=== PATIENT | male | born 1960 | race Caucasian/White ===

== ENCOUNTER → 2020-10-19 11:31 | Outpatient (REF) | payer OTHER, SELFPAY ==
--- NOTE | 2020-10-19 11:30 | CA_ITS ---
Transthoracic Echocardiogram Patient (Last, First, Middle): Tam Yeh, Gender: Male Date of : 1960 Age: 60 Procedure Date: 10/19/2020 Procedure Type: Transthoracic Echocardiogram Location: OP Height: 180.34 cm Weight: 88.45 kg BSA: 2.09 m2 Heart Rate: bpm BP: 112 / 62 mmHg Yard Cleaner: ADEN Referring MD: Mukesh Jane MD Symptoms: I77.810 AAA,Z86.711 HX PULMONARY EMBOLISM Study Quality: Fair Conclusions: - Normal left ventricular size, thickness, systolic function, and wall motion. The visually estimated ejection fraction is between 55-60%. - Normal right ventricular cavity size and systolic function. - There is mild dilatation of the sinuses of Valsalva and mild dilatation of the ascending aorta. Findings Left Ventricle Normal left ventricular size, thickness, systolic function, and wall motion. The visually estimated ejection fraction is between 55-60%. Diastolic function is normal for age. Right Ventricle Normal right ventricular cavity size and systolic function. Atria Both atria are normal in size. Aortic Valve There is a normal trileaflet aortic valve. There is no aortic valve stenosis. There is no aortic valve regurgitation. Mitral Valve Normal mitral valve structure and function. There is trace mitral valve regurgitation. There is no mitral valve stenosis. Pulmonic Valve The pulmonic valve is likely normal. Tricuspid Valve Normal tricuspid valve structure and function. There is trace tricuspid valve regurgitation. Normal right atrial pressure. There is no evidence of pulmonary hypertension. Great Vessels The pulmonary artery was not well visualized. There is mild dilatation of the sinuses of Valsalva and mild dilatation of the ascending aorta. Venous The inferior vena cava is normal in size and collapses greater than 50% with inspiration. Pericardium/Pleural There is no evidence of pericardial effusion. Prior Study Comparison No significant change compared to prior study dated: 11/04/2019. Measurements 2D Linear Measurements IVSd: 1.03 0.6-0.9/0.6-1.0 cm LVIDd: 5.23 3.9-5.3/4.2-5.9 cm LVIDd Index: 2.50 2.4-3.2/2.2-3.1 cm/m2 LVIDs: 3.73 2.0-3.6 cm LVPWd: 0.87 0.7-1.1 cm Ao Root: 4.30 2.1-3.5 cm LA Diam: 3.80 2.7-3.8/3.0-4.0 cm LAIDs Index: 1.82 1.5-2.3 cm/m2 LV Mass: 228.03 67-162/88-224 g LV Mass Index: 109.10 43-95/49-115 g/m2 LVOT Diam: 2.30 3.0+(-)1.3 cm 2D Systolic Function EF 4C: 55.90 >55% EF 2C: 56.10 >55% EF BiP: 55.90 >55% Mitral Valve MV Pk E: 0.69 MV PK A: 0.61 MV Decel Time: 349.00 E/A: 1.10 E'Lateral: 10.90 E'Medial: 8.05 E/E' Med: 8.50 E/E' Lat: 6.30 PHT: 102.00 MVA PHT: 2.16 Decel [place]: 1.97 Aortic Valve AoV Pk Abilio: 1.46 AoV Mn Abilio: 0.99 AoV VTI: 0.34 AoV Pk Grad: 9.00 Aov Mn Grad: 4.00 VINICIO Cont.VTI: 2.69 LVOT LVOT Pk Abilio: 1.12 LVOT Mn Abilio: 0.74 LVOT VTI: 0.22 LVOT Pk Grad: 5.00 LVOT Mn Grad: 2.00 LVOT Diam: 2.30 LVOT Area: 4.15 Diastolic Function MV Pk E: 0.69 MV Pk A: 0.61 E/A: 1.10 E'Medial: 8.05 E/E' Med: 8.50 E' Laterial: 10.90 E/E' Lat: 6.30 Tricuspid Valve TR Pk Abilio: 2.13 TR Pk Grad: 18.00 RA Press: 3.00 RVSP: 21.00 Great Vessels Aorta Ao Root-2D: 4.30 2.0-3.7 cm Sinus of Valsalva: 4.30 2.0-3.5 cm Ao Asc: 4.10 2.1-3.4 cm Updated in Other Vendor System with Status of Final Se Mendez MD electronically signed on 10/21/2020 6:24:45 AM with status of Final
== END ==
LOC: HO.CARD 11:31
PROVIDERS: Visit Provider Internal Medicine Cardiovascular Disease
DX: I77.810 Thoracic aortic ectasia (principal); Z86.711 Personal history of pulmonary embolism
CPT/HCPCS: 93306

== ENCOUNTER → 2020-10-30 11:19 | Outpatient (BNVA) | payer OTHER, SELFPAY | PROVIDERS: PCP Internal Medicine; Referring Provider Internal Medicine; Visit Provider Internal Medicine Cardiovascular Disease | DX: I71.2 Thoracic aortic aneurysm, without rupture (principal); D68.51 Activated protein C resistance | CPT/HCPCS: 99212 ==

== ENCOUNTER → 2021-10-02 10:31 | Outpatient (REF) | payer OTHER, SELFPAY ==
--- NOTE | 2021-10-02 10:36 | CA_ITS ---
Transthoracic Echocardiogram Patient (Last, First, Middle): Tam Yeh, Gender: Male Date of : 1960 Age: 61 Procedure Date: 10/02/2021 Procedure Type: Transthoracic Echocardiogram Location: OP Height: 180.34 cm Weight: 83.01 kg BSA: 2.03 m2 Heart Rate: bpm BP: 117 / 72 mmHg Yarn Texture Machine Operator: GAMALIEL Referring MD: Mukesh Jane MD Symptoms: I71.2 - Thoracic aortic aneurysm, without rupture Study Quality: Fair ECG Rhythm: Sinus Conclusions: - The left ventricular systolic function is low normal. The visually estimated ejection fraction is between 50-55%. - Right ventricular appears [id number] dilated in the basal aspect. - No obvious valvular pathology seen on this study. - There is mild dilatation of the ascending aorta measuring 3.90 cm and mild dilatation of the aortic arch measuring 3.30 cm. Findings Left Ventricle Normal left ventricular cavity size. There is normal left ventricular wall thickness. The left ventricular systolic function is low normal. The visually estimated ejection fraction is between 50-55%. There is no evidence of regional wall motion abnormalities. Diastolic function is normal for age. Right Ventricle There is normal right ventricular systolic function. Right ventricular appears [id number] dilated in the basal aspect. Atria Both atria are normal in size. Aortic Valve There is a normal trileaflet aortic valve. There is no aortic valve stenosis. There is no aortic valve regurgitation. Mitral Valve The mitral valve appears normal. There is trace mitral valve regurgitation. There is no mitral valve stenosis. Pulmonic Valve The pulmonic valve was not well visualized. Tricuspid Valve Normal tricuspid valve structure. There is trace tricuspid valve regurgitation. The pulmonary artery systolic pressure is normal. Great Vessels There is mild dilatation of the ascending aorta measuring 3.90 cm and mild dilatation of the aortic arch measuring 3.30 cm. Venous The inferior vena cava is normal in size and collapses greater than 50% with inspiration. Pericardium/Pleural There is no evidence of pericardial effusion. Prior Study Comparison No significant change compared to prior study dated: 10/19/2020. RV enlargement not described in prior study, but noted in older studies. Recommendations, Care & Conclusions No obvious valvular pathology seen on this study. Measurements 2D Linear Measurements IVSd: 0.85 0.6-0.9/0.6-1.0 cm LVIDd: 4.66 3.9-5.3/4.2-5.9 cm LVIDd Index: 2.30 2.4-3.2/2.2-3.1 cm/m2 LVIDs: 3.15 2.0-3.6 cm LVPWd: 1.41 0.7-1.1 cm Ao Root: 3.80 2.1-3.5 cm LA Diam: 3.50 2.7-3.8/3.0-4.0 cm LAIDs Index: 1.72 1.5-2.3 cm/m2 LV Mass: 238.79 67-162/88-224 g LV Mass Index: 117.63 43-95/49-115 g/m2 LVOT Diam: 2.00 3.0+(-)1.3 cm 2D Systolic Function EF 4C: 53.50 >55% EF 2C: 62.70 >55% EF BiP: 58.40 >55% Mitral Valve MV Pk E: 0.58 MV PK A: 0.62 MV Decel Time: 189.00 E/A: 0.90 E'Lateral: 12.60 E'Medial: 8.81 E/E' Med: 6.60 E/E' Lat: 4.60 PHT: 55.00 MVA PHT: 4.00 Decel [place]: 3.09 Aortic Valve AoV Pk Abilio: 1.17 AoV Pk Grad: 5.00 LVOT LVOT Pk Abilio: 1.01 LVOT Mn Abilio: 0.66 LVOT VTI: 0.21 LVOT Pk Grad: 4.00 LVOT Mn Grad: 2.00 LVOT Diam: 2.00 LVOT Area: 3.14 Diastolic Function MV Pk E: 0.58 MV Pk A: 0.62 E/A: 0.90 E'Medial: 8.81 E/E' Med: 6.60 E' Laterial: 12.60 E/E' Lat: 4.60 Right Ventricle TAPSE (mm): 2.72 TVS' Abilio: 13.50 Tricuspid Valve TR Pk Abilio: 2.23 TR Pk Grad: 20.00 RA Press: 3.00 RVSP: 23.00 Great Vessels Aorta Ao Root-2D: 3.80 2.0-3.7 cm Ao Asc: 3.90 2.1-3.4 cm Ao Arch: 3.30 Updated in Other Vendor System with Status of Final Dylan Weaver MD electronically signed on 10/04/2021 1:18:03 PM with status of Final
== END ==
LOC: HO.CARD 10:31
PROVIDERS: Visit Provider Internal Medicine Cardiovascular Disease
DX: I71.2 Thoracic aortic aneurysm, without rupture (principal)
CPT/HCPCS: 93306

== ENCOUNTER → 2021-10-15 14:33 | Outpatient (BNVA) | payer OTHER, SELFPAY | PROVIDERS: PCP Internal Medicine; Referring Provider Internal Medicine; Visit Provider Internal Medicine Cardiovascular Disease | DX: I71.2 Thoracic aortic aneurysm, without rupture (principal); D68.51 Activated protein C resistance | CPT/HCPCS: 93005; 99212 ==

== ENCOUNTER → 2022-09-17 09:39 | Outpatient (REF) | payer OTHER, SELFPAY ==
--- NOTE | 2022-09-17 09:42 | CA_ITS ---
Transthoracic Echocardiogram Patient (Last, First, Middle): Tam Yeh, Gender: Male Date of : 1960 Age: 61 Procedure Date: 09/17/2022 Procedure Type: Transthoracic Echocardiogram Location: OP Height: 180.34 cm Weight: 79.38 kg BSA: 1.99 m2 Heart Rate: 66 bpm BP: 110 / 60 mmHg Label Pinker: RONALD Referring MD: Mukesh Jane MD Railroad Conductor: Mukesh Jane MD Symptoms: I71.2 - Thoracic aortic aneurysm, without rupture Study Quality: Technically Difficult ECG Rhythm: Sinus Conclusions: - 1. Normal LV systolic function with impaired relaxation filling pattern 2. Normal cardiac valvular Doppler 3. Normal RV systolic pressure 4. Ascending aorta not well visualized on this study 5. No gross pericardial effusion Findings Left Ventricle Normal left ventricular size, thickness, and systolic function. The visually estimated ejection fraction is between 55-60%. Spectral Doppler is indicative of an impaired relaxation filling pattern. E/E prime ratio is between 8 and 15 consistent with indeterminate filling pressures. Right Ventricle Normal right ventricular cavity size and systolic function. Atria Both atria are normal in size. There is no evidence of interatrial shunt. Aortic Valve The aortic valve was not well visualized. There is no aortic valve stenosis. There is no aortic valve regurgitation. Mitral Valve There is mild anterior and posterior mitral leaflet thickening. There is trace mitral valve regurgitation. There is no mitral valve stenosis. Pulmonic Valve The pulmonic valve was not well visualized. Tricuspid Valve Likely normal tricuspid valve structure and function. Great Vessels The aorta was not well visualized. The pulmonary artery was not well visualized. Venous The inferior vena cava is normal in size and collapses greater than 50% with inspiration. Pericardium/Pleural There is no evidence of pericardial effusion. Prior Study Comparison No significant change compared to prior study dated: 10/02/2021. ascending aorta not well visualized on this study Measurements 2D Linear Measurements IVSd: 0.84 0.6-0.9/0.6-1.0 cm LVIDd: 5.20 3.9-5.3/4.2-5.9 cm LVIDd Index: 2.61 2.4-3.2/2.2-3.1 cm/m2 LVIDs: 4.25 2.0-3.6 cm LVPWd: 0.89 0.7-1.1 cm LA Diam: 3.40 2.7-3.8/3.0-4.0 cm LAIDs Index: 1.71 1.5-2.3 cm/m2 LV Mass: 200.19 67-162/88-224 g LV Mass Index: 100.60 43-95/49-115 g/m2 LVOT Diam: 2.00 3.0+(-)1.3 cm 2D Systolic Function EF 4C: 54.50 >55% EF 2C: 61.70 >55% EF BiP: 59.00 >55% Mitral Valve MV Pk E: 0.67 MV PK A: 0.81 MV Decel Time: 202.00 E/A: 0.80 E'Lateral: 10.00 E'Medial: 7.40 E/E' Med: 9.10 E/E' Lat: 6.70 PHT: 59.00 MVA PHT: 3.73 Decel [place]: 3.33 Aortic Valve AoV Pk Abilio: 1.19 AoV Mn Abilio: 0.80 AoV VTI: 0.25 AoV Pk Grad: 6.00 Aov Mn Grad: 3.00 VINICIO Cont.VTI: 2.51 LVOT LVOT Pk Abilio: 1.02 LVOT Mn Abilio: 0.67 LVOT VTI: 0.20 LVOT Pk Grad: 4.00 LVOT Mn Grad: 2.00 LVOT Diam: 2.00 LVOT Area: 3.14 Diastolic Function MV Pk E: 0.67 MV Pk A: 0.81 E/A: 0.80 E'Medial: 7.40 E/E' Med: 9.10 E' Laterial: 10.00 E/E' Lat: 6.70 Right Ventricle TAPSE (mm): 25.40 TVS' Abilio: 13.70 Tricuspid Valve TR Pk Abilio: 2.03 TR Pk Grad: 16.00 RA Press: 3.00 RVSP: 19.00 Great Vessels Aorta Sinus of Valsalva: 3.30 2.0-3.5 cm Ao Asc: 3.00 2.1-3.4 cm Pulmonary Valve PV Pk Abilio: 0.91 Peak PV Grad: 3.00 Updated in Other Vendor System with Status of Final Mukesh Jane MD electronically signed on 09/19/2022 4:45:16 PM with status of Final
== END ==
LOC: HO.CARD 09:39
PROVIDERS: PCP Internal Medicine; Visit Provider Internal Medicine Cardiovascular Disease
DX: I71.20 Thoracic aortic aneurysm, without rupture, unspecified (principal)
CPT/HCPCS: 93306

== ENCOUNTER → 2022-10-15 13:06 | Outpatient (BNVA) | payer OTHER, SELFPAY | PROVIDERS: PCP Internal Medicine; Referring Provider Internal Medicine; Visit Provider Internal Medicine Cardiovascular Disease | DX: I71.20 Thoracic aortic aneurysm, without rupture, unspecified (principal); Z79.01 Long term (current) use of anticoagulants | CPT/HCPCS: 93005; 99212 ==

== ENCOUNTER → 2023-10-19 11:01 | Outpatient (REF) | payer OTHER, SELFPAY ==
--- NOTE | 2023-10-19 11:04 | CA_ITS ---
Transthoracic Echocardiogram Patient (Last, First, Middle): Tam Yeh, Gender: Male Date of : 1960 Age: 63 Procedure Date: 10/19/2023 Procedure Type: Transthoracic Echocardiogram Location: OP Height: 180.34 cm Weight: 83.46 kg BSA: 2.04 m2 Heart Rate: bpm BP: 120 / 70 mmHg Candy Maker: SUBHASH Referring MD: Mukesh Jane MD Academic Services Coordinator: Mukesh Jane MD Symptoms: I71.2 - Thoracic aortic aneurysm, without rupture Study Quality: Adequate ECG Rhythm: Sinus Conclusions: - 1. Normal LV systolic function with LVEF of 55-60% with grade 1 diastolic dysfunction 2. Normal cardiac valvular Doppler 3. Mildly dilated ascending aorta at 4.2 cm 4. Normal RV systolic pressure 5. No gross pericardial effusion Findings Left Ventricle Normal left ventricular size, thickness, and systolic function. The visually estimated ejection fraction is between 55-60%. Spectral Doppler is indicative of an impaired relaxation filling pattern. E/E prime ratio is <8, consistent with normal filling pressures. Evidence suggests grade I (mild) diastolic dysfunction. Right Ventricle Normal right ventricular cavity size and systolic function. Atria The left atrium is likely dilated. There is no evidence of interatrial shunt. The right atrium is normal in size. Aortic Valve Normal aortic valve structure and function. There is no aortic valve stenosis. There is no aortic valve regurgitation. Mitral Valve Normal mitral valve structure and function. There is trace mitral valve regurgitation. There is no mitral valve stenosis. Pulmonic Valve The pulmonic valve is likely normal. There is trace to mild pulmonic valve regurgitation. Tricuspid Valve Normal tricuspid valve structure. There is trace tricuspid valve regurgitation. The right ventricular systolic pressure is normal. The right ventricular systolic pressure is 23 mmHg. Normal right atrial pressure. There is no evidence of pulmonary hypertension. Great Vessels The pulmonary artery was not well visualized. There is mild dilatation of the ascending aorta measuring 4.20 cm. Venous The inferior vena cava is normal in size and collapses greater than 50% with inspiration. Pericardium/Pleural There is no evidence of pericardial effusion. Prior Study Comparison Changes noted compared to prior study dated: 09/17/2022. Ascending aorta is measured at 4.2 cm on this study Measurements 2D Linear Measurements IVSd: 1.00 0.6-0.9/0.6-1.0 cm LVIDd: 4.77 3.9-5.3/4.2-5.9 cm LVIDd Index: 2.34 2.4-3.2/2.2-3.1 cm/m2 LVIDs: 3.37 2.0-3.6 cm LVPWd: 0.88 0.7-1.1 cm LA Diam: 3.90 2.7-3.8/3.0-4.0 cm LAIDs Index: 1.91 1.5-2.3 cm/m2 LV Mass: 192.56 67-162/88-224 g LV Mass Index: 94.39 43-95/49-115 g/m2 LVOT Diam: 2.20 3.0+(-)1.3 cm 2D Systolic Function EF 4C: 53.60 >55% EF 2C: 59.30 >55% EF BiP: 54.70 >55% Mitral Valve MV Pk E: 0.55 MV PK A: 0.67 MV Decel Time: 274.00 E/A: 0.80 E'Lateral: 10.20 E'Medial: 7.94 E/E' Med: 6.90 E/E' Lat: 5.40 PHT: 80.00 MVA PHT: 2.75 Decel [place]: 2.00 Aortic Valve AoV Pk Abilio: 1.39 AoV Mn Abilio: 0.94 AoV VTI: 0.28 AoV Pk Grad: 8.00 Aov Mn Grad: 4.00 VINICIO Cont.VTI: 3.04 LVOT LVOT Pk Abilio: 1.04 LVOT Mn Abilio: 0.67 LVOT VTI: 0.22 LVOT Pk Grad: 4.00 LVOT Mn Grad: 2.00 LVOT Diam: 2.20 LVOT Area: 3.80 Diastolic Function MV Pk E: 0.55 MV Pk A: 0.67 E/A: 0.80 E'Medial: 7.94 E/E' Med: 6.90 E' Laterial: 10.20 E/E' Lat: 5.40 Right Ventricle TAPSE (mm): 28.70 TVS' Abilio: 14.40 Tricuspid Valve TR Pk Abilio: 2.26 TR Pk Grad: 20.00 RA Press: 3.00 RVSP: 23.00 Great Vessels Aorta Sinus of Valsalva: 4.35 2.0-3.[address] [place]: 3.27 1.7-3.4 cm Ao Asc: 4.20 2.1-3.4 cm Ao Arch: 3.60 Updated in Other Vendor System with Status of Final Mukesh Jane MD electronically signed on 10/20/2023 4:54:49 PM with status of Final
== END ==
LOC: HO.CARD 11:01
PROVIDERS: PCP Internal Medicine; Visit Provider Internal Medicine Cardiovascular Disease
DX: I71.20 Thoracic aortic aneurysm, without rupture, unspecified (principal)
CPT/HCPCS: 93306

== ENCOUNTER → 2023-10-19 11:04 | Outpatient (BNV) | payer OTHER, SELFPAY | PROVIDERS: PCP Internal Medicine; Visit Provider Internal Medicine Cardiovascular Disease | DX: I37.1 Nonrheumatic pulmonary valve insufficiency (principal) | CPT/HCPCS: 93306 ==

== ENCOUNTER 2023-10-27 12:30 | Outpatient (AMB) | payer OTHER, SELFPAY ==
[2023-10-27 12:35] VITALS: BP 122/80; PULSE 66; BMI 26.4
--- NOTE | 2023-10-27 12:35 | A.OFFVIS_ITS ---
Intake Vital Signs 10/27/23 12:35 Height 5 ft 11 in Weight 189 lb 9.561 oz BMI 26.4 BP 122/80 Blood Pressure Location Lt brachial Position Sitting Pulse 66 Intake Visit Reasons: 1 yr f/up echo Intake Note: 1 year follow-up with ekg after echo feeling good Music Composition Teacher Required: No Allergies No Known Allergies Allergy (Verified 10/15/21 14:41) Medication List - Last Reconciled 10/27/23 by Mukesh Jane MD apixaban (Eliquis) 5 mg PO BID chlorhexidine gluconate 0.12% mL PO HPI HPI Comments History of Present Illness Details Tam comes for follow-up. Recent echocardiogram shows stable ascending aortic aneurysm at 4.2 cm. No new cardiac symptoms. Tolerating Eliquis therapy well. Denies any exertional chest pain or shortness of breath. [facility] Medical History History of pulmonary embolism Factor 5 Leiden mutation, heterozygous Thoracic aortic aneurysm Surgical History No pertinent past surgical history Family History Brother Heart disease Father No problems noted. Mother No problems noted. Social History Alcohol intake: current Alcohol intake frequency: 3 or more drinks per day Alcohol type: beer Patient Tobacco Use Status: Never used Tobacco Substance Use Type: Marijuana Review of Systems Const Denies chills, Denies fatigue, Denies fever(s), Denies frequent falls, Denies weakness, Denies weight gain and Denies weight loss ENT Denies dizziness Card Denies chest pain, Denies leg edema, Denies lightheadedness, Denies palpitat ions, Denies dyspnea, Denies dyspnea on exertion, Denies orthopnea and Denies other (loss of consciousness) Resp Denies cough, Denies dyspnea and Denies dyspnea on exertion GI Denies hematochezia and Denies change in stool character Musc Denies abnormal gait, Denies muscle weakness, Denies numbness, Denies radiating pain into limb and Denies tingling Neuro Denies abnormal gait, Denies dizziness, Denies frequent falls, Denies numbness, Denies tingling and Denies weakness Endo Denies fatigue and Denies palpitations Physical Exam Vital Signs: BMI result Body Mass Index 26.4 Const General: cooperative, comfortable, alert and awake Nutritional Appearance: average body habitus Orientation/consciousness: patient oriented x3 Limitations: no limitations Neck Neck: Yes trachea midline, Yes supple and Yes no JVD Chest Chest palpation & inspection: normal inspection of the chest Resp Effort & Inspection: normal respiratory effort Auscultation: clear to auscultation bilaterally Cardio Jugular venous distension: no JVD Palpation: normal PMI Rate: regular rate Rhythm: regular rhythm Heart sounds: S1 normal heart sound present and S2 normal heart sound present Skin General skin exam: no rashes or lesions noted Neuro General: patient oriented x3 and no focal motor deficits Extrem General: Yes no clubbing, cyanosis or edema Psych Appearance: grossly normal Office Procedures EKG Details: EKG shows normal sinus rhythm with normal EKG at 66 beats per minute [id number], Complete Assessment & Plan Assessment & Plan (1) Thoracic aortic aneurysm: Code(s): I71.2 - Thoracic aortic aneurysm, without rupture Plan: Stable mild thoracic aortic aneurysm over the years. We discussed mechanism of thoracic aortic aneurysm. No interventions required at this point time. Given that it has been stable over the last 4 years will schedule to see him every 2 years after an echocardiogram. Symptoms associated with acute aortic syndrome were discussed. Continue to monitor blood pressure and maintain a log and target goal blood pressure less than 130. 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 Currently tolerating Eliquis therapy well. Continue the same. Importance of oral anticoagulation therapy we discussed benefits of Eliquis over warfarin were discussed. He understands. Will follow up in the clinic in 2 years time, sooner p.r.n.. Thank you for allowing me to partake in his care Coding Level of Care Code Est Pt Level 4 (30751) Diagnoses Thoracic aortic aneurysm I71.2 Factor 5 Leiden mutation, heterozygous D68.51 CPT Codes EKG - CPT: 44400-[id number], Complete ([id number])
== END 2023-10-27 12:53 | disposition home or self-care (01) ==
PROVIDERS: Visit Provider Internal Medicine Cardiovascular Disease
DX: I71.20 Thoracic aortic aneurysm, without rupture, unspecified (principal); D68.51 Activated protein C resistance
CPT/HCPCS: 93010; 99214

== ENCOUNTER → 2023-10-27 12:30 | Outpatient (BNVA) | payer OTHER, SELFPAY | PROVIDERS: Visit Provider Internal Medicine Cardiovascular Disease | DX: I71.20 Thoracic aortic aneurysm, without rupture, unspecified (principal); D68.51 Activated protein C resistance; Z86.711 Personal history of pulmonary embolism; Z79.01 Long term (current) use of anticoagulants | CPT/HCPCS: 93005; 99212 ==